=== PATIENT | female | born 1955 | race Two or more races ===

== ENCOUNTER 2023-04-03 19:09 | Inpatient (IN) | payer MEDICARE, OTHER ==
[~2023-04-03] VITALS: Ht 154.9 cm; Wt 104.3 kg
[~2023-04-03 19:09] MED LIST: ALBU8.5H8 IH; DICL50TA7 PO; FURO-144 PO; GLIP10TA11 PO; HYDR200T81 PO; LEVO112T8 PO; METF-881 PO; OMEP40CA21 PO; POTA20TA74 PO; VALS80TA2 PO
[2023-04-03] MEDS ORDERED: FUROSEMIDE 40 MG/4 ML VIAL IV ONE (19:30)
[2023-04-03] MEDS ORDERED: IPRATROPIUM NEB FS 0.5 MG/2.5 ML AMPUL.NEB ONE (19:30)
[2023-04-03] MEDS ORDERED: ALBUTEROL FS 2.5 MG/3 ML VIAL.NEB ONE (19:30)
[2023-04-03] MEDS ORDERED: ALBUTEROL FS 2.5 MG/3 ML VIAL.NEB NEB ONE (19:30)
[2023-04-03] MEDS ORDERED: IPRATROPIUM NEB FS 0.5 MG/2.5 ML AMPUL.NEB NEB ONE (19:30)
[2023-04-03 19:38] VITALS: O2SAT 95
[2023-04-03] MEDS ORDERED: FUROSEMIDE 40 MG/4 ML VIAL ONE (19:40)
[2023-04-03 19:51] LABS: BASOPHILS # (AUTO) 0.1 K/uL (0.0-0.2); BASOPHILS % (AUTO) 0.7 % (0.0-2.0); EOSINOPHILS # (AUTO) 0.1 K/uL (0.0-0.7); EOSINOPHILS % (AUTO) 1.5 % (0.0-6.0); HEMATOCRIT 32 % (33-45); HEMOGLOBIN 10.1 g/dL (11.5-14.8); LYMPHOCYTES # (AUTO) 1.7 K/uL (0.8-4.8); LYMPHOCYTES % (AUTO) 18.2 % (20.0-44.0); MEAN CORPUSCULAR HEMOGLOBIN 25 PG (26.0-33.0); MEAN CORPUSCULAR HGB CONC 32 g/dl (31.0-36.0); MEAN CORPUSCULAR VOLUME 78 fL (82-100); MONOCYTES # (AUTO) 0.6 K/uL (0.1-1.30); MONOCYTES % (AUTO) 6.2 % (2.0-12.0); NEUTROPHILS # (AUTO) 6.9 K/uL (1.8-8.9); NEUTROPHILS % (AUTO) 73.4 % (43.0-81.0); PLATELET COUNT (AUTO) 333 K/uL (150-450); RED BLOOD CELL COUNT(AUTO) 4.08 MIL/uL (4.0-5.2); RED CELL DISTRIBUTION WIDTH 17.6 % (11.5-15.0); WHITE BLOOD COUNT (AUTO) 9.4 K/uL (4.3-11.0)
[2023-04-03 19:53] VITALS: O2SAT 97
[2023-04-03 19:56] LABS: ALANINE AMINOTRANSFERASE 18 U/L (12-78); ALBUMIN 2.9 g/dL (3.4-5.0); ALKALINE PHOSPHATASE 69 U/L (46-116); ASPARTATE AMINOTRANSFERASE 12 U/L (15-37); BILIRUBIN,DIRECT 0.1 mg/dL (0.0-0.2); BILIRUBIN,TOTAL 0.3 mg/dL (0.2-1.0); CALCIUM, SERUM 8.9 mg/dL (8.5-10.1); CARBON DIOXIDE 26 mmol/L (21-32); CHLORIDE 106 mmol/L (98-107); CREATININE 0.9 mg/dL (0.6-1.3); GLUCOSE 173 mg/dL (74-106); POTASSIUM 4.2 mmol/L (3.5-5.1); SODIUM SERUM 141 mmol/L (136-145); UREA NITROGEN, BLOOD 14 mg/dL (7-18)
[2023-04-03] MEDS ORDERED: ACETAMINOPHEN 325 MG TABLET PO PRN (23:00)
[2023-04-03] MEDS ORDERED: MAG HYDROX/AL HYDROX/SIMETH 30 ML UDC PO PRN (23:00)
[2023-04-03] MEDS ORDERED: Z GUARD REMEDY 4 OZ OINT TP PRN (23:00)
[2023-04-03] MEDS ORDERED: ONDANSETRON HCL/PF 4 MG/2 ML VIAL IVP PRN (23:00)
[2023-04-03] MEDS ORDERED: MAGNESIUM HYDROXIDE 30 ML UDC PO PRN (23:00)
[2023-04-03] MEDS ORDERED: DEXTROSE 50%-WATER 50 ML DISP.SYRIN IV PRN (23:00)
[2023-04-03] MEDS ORDERED: ZOLPIDEM TARTRATE 5 MG TABLET PO PRN (23:00)
[2023-04-03] MEDS ORDERED: ALBUTEROL FS 2.5 MG/3 ML VIAL.NEB NEB PRN (23:30)
[2023-04-03 23:37] VITALS: BP 143/72; TEMP 98.4; O2SAT 99
[2023-04-03 23:45] VITALS: BP 143/72; TEMP 98.4; O2SAT 99
[2023-04-04] VITALS: BP 115/69; TEMP 98.2; O2SAT 100
[2023-04-04 04:00] VITALS: BP 128/49; TEMP 98; TEMP 98.2; O2SAT 98
[2023-04-04 05:57] LABS: BASOPHILS % (AUTO) 0.5 % (0.0-2.0); EOSINOPHILS # (AUTO) 0.2 K/uL (0.0-0.7); EOSINOPHILS % (AUTO) 2.2 % (0.0-6.0); HEMATOCRIT 30 % (33-45); HEMOGLOBIN 9.5 g/dL (11.5-14.8); LYMPHOCYTES % (AUTO) 23.5 % (20.0-44.0); MEAN CORPUSCULAR HEMOGLOBIN 25 PG (26.0-33.0); MEAN CORPUSCULAR HGB CONC 32 g/dl (31.0-36.0); MEAN CORPUSCULAR VOLUME 77 fL (82-100); MONOCYTES # (AUTO) 0.7 K/uL (0.1-1.30); MONOCYTES % (AUTO) 8.5 % (2.0-12.0); NEUTROPHILS # (AUTO) 5.7 K/uL (1.8-8.9); NEUTROPHILS % (AUTO) 65.3 % (43.0-81.0); PLATELET COUNT (AUTO) 319 K/uL (150-450); RED BLOOD CELL COUNT(AUTO) 3.85 MIL/uL (4.0-5.2); RED CELL DISTRIBUTION WIDTH 18.1 % (11.5-15.0); WHITE BLOOD COUNT (AUTO) 8.7 K/uL (4.3-11.0)
[2023-04-04 06:09] LABS: CALCIUM, SERUM 8.2 mg/dL (8.5-10.1); MAGNESIUM 1.8 mg/dL (1.8-2.4); PHOSPHORUS 4.2 mg/dL (2.5-4.9); POTASSIUM 4.2 mmol/L (3.5-5.1)
[2023-04-04] MEDS: BLOOD SUGAR DIAGNOSTIC 1 EACH STRIP IN SCH ×4 (06:56→21:59)
[2023-04-04] MEDS: INSULIN REGULAR, HUMAN 100 UNIT/ML 3 ML VIAL SQ PRN ×4 (06:57→22:00)
[2023-04-04] MEDS: PANTOPRAZOLE 40 MG TABLET.DR PO SCH (08:22)
[2023-04-04] MEDS: LEVOTHYROXINE SODIUM 112 MCG TABLET PO SCH (08:22)
[2023-04-04] MEDS: VALSARTAN 80 MG TABLET PO SCH (08:24)
[2023-04-04] MEDS: HYDROXYCHLOROQUINE 200 MG TABLET PO SCH (08:25)
[2023-04-04 08:36] VITALS: BP 156/52; TEMP 98; O2SAT 97
[2023-04-04] MEDS ORDERED: GABA300C PO (09:27)
[2023-04-04] MEDS ORDERED: ASPI-1169 PO (09:27)
[2023-04-04] MEDS ORDERED: FURO-145 PO (09:27)
[2023-04-04] MEDS ORDERED: LEVO137T2 PO (09:27)
[2023-04-04] MEDS ORDERED: METO-357 PO (09:28)
[2023-04-04] MEDS ORDERED: LOSA100T31 PO (09:28)
[2023-04-04] MEDS ORDERED: BLOO-668 IN (09:28)
[2023-04-04] MEDS ORDERED: LINA5TAB PO (09:28)
[2023-04-04] MEDS ORDERED: CLOP75TA15 PO (09:28)
[2023-04-04] MEDS ORDERED: ATOR80TA PO (09:28)
[2023-04-04] MEDS ORDERED: DAPA10TA PO (09:28)
[2023-04-04] MEDS ORDERED: FLUT1BLS IH (09:28)
[2023-04-04] MEDS ORDERED: METH500T6 PO (09:28)
[2023-04-04] MEDS ORDERED: INSU100V7 SQ (09:28)
[2023-04-04] MEDS ORDERED: MONT10TA22 PO (09:28)
[2023-04-04 09:49] LABS: THYROID STIMULATING HORMONE 6.139 uIU/mL (0.358-3.74)
[2023-04-04] MEDS: FUROSEMIDE 40 MG/4 ML VIAL IV SCH ×3 (10:04→17:26)
[2023-04-04] MEDS: POTASSIUM CHLORIDE 20 MEQ TAB.PRT.SR PO SCH ×3 (10:04→11:25)
[2023-04-04 12:00] VITALS: BP 147/52; TEMP 98; O2SAT 98
[2023-04-04 16:00] VITALS: BP 135/48; TEMP 98.4; O2SAT 97
[2023-04-04 20:00] VITALS: BP 143/55; TEMP 98.2; O2SAT 97
[2023-04-04] MEDS: HYDROCODONE/APAP 10/325MG TABLET PO PRN (22:40)
[2023-04-05] VITALS (7 sets, daily range): BP systolic 124–135; BP diastolic 44–64; TEMP 98.1–98.4; O2SAT 95–99
[2023-04-05] MEDS: HYDROCODONE/APAP 10/325MG TABLET PO PRN ×3 (06:41→17:08)
[2023-04-05 07:01] LABS: BASOPHILS # (AUTO) 0.1 K/uL (0.0-0.2); BASOPHILS % (AUTO) 0.7 % (0.0-2.0); EOSINOPHILS # (AUTO) 0.3 K/uL (0.0-0.7); EOSINOPHILS % (AUTO) 3.4 % (0.0-6.0); HEMATOCRIT 32 % (33-45); HEMOGLOBIN 10.2 g/dL (11.5-14.8); LYMPHOCYTES # (AUTO) 2.5 K/uL (0.8-4.8); LYMPHOCYTES % (AUTO) 27.2 % (20.0-44.0); MEAN CORPUSCULAR HEMOGLOBIN 25 PG (26.0-33.0); MEAN CORPUSCULAR HGB CONC 32 g/dl (31.0-36.0); MEAN CORPUSCULAR VOLUME 77 fL (82-100); MONOCYTES # (AUTO) 0.8 K/uL (0.1-1.30); MONOCYTES % (AUTO) 9.2 % (2.0-12.0); NEUTROPHILS # (AUTO) 5.4 K/uL (1.8-8.9); NEUTROPHILS % (AUTO) 59.5 % (43.0-81.0); PLATELET COUNT (AUTO) 357 K/uL (150-450); RED CELL DISTRIBUTION WIDTH 17.6 % (11.5-15.0); WHITE BLOOD COUNT (AUTO) 9.1 K/uL (4.3-11.0)
[2023-04-05] MEDS: BLOOD SUGAR DIAGNOSTIC 1 EACH STRIP IN SCH ×4 (07:04→21:27)
[2023-04-05] MEDS: INSULIN REGULAR, HUMAN 100 UNIT/ML 3 ML VIAL SQ PRN ×4 (07:08→21:27)
[2023-04-05 07:45] LABS: BILIRUBIN,TOTAL 0.2 mg/dL (0.2-1.0); CALCIUM, SERUM 8.8 mg/dL (8.5-10.1); MAGNESIUM 1.8 mg/dL (1.8-2.4); PHOSPHORUS 4.6 mg/dL (2.5-4.9); POTASSIUM 3.6 mmol/L (3.5-5.1); TOTAL PROTEIN, SERUM 7.2 g/dL (6.4-8.2)
[2023-04-05] MEDS: HYDROXYCHLOROQUINE 200 MG TABLET PO SCH (08:33)
[2023-04-05] MEDS: PANTOPRAZOLE 40 MG TABLET.DR PO SCH (08:33)
[2023-04-05] MEDS: LEVOTHYROXINE SODIUM 112 MCG TABLET PO SCH (08:33)
[2023-04-05] MEDS: VALSARTAN 80 MG TABLET PO SCH (08:33)
[2023-04-06] VITALS: BP 114/62; TEMP 98.6; O2SAT 99
[2023-04-06] MEDS: HYDROCODONE/APAP 10/325MG TABLET PO PRN ×2 (00:47→08:41)
[2023-04-06 04:00] VITALS: BP 138/61; TEMP 97.9; O2SAT 99
[2023-04-06] MEDS: BLOOD SUGAR DIAGNOSTIC 1 EACH STRIP IN SCH ×3 (06:38→17:33)
[2023-04-06] MEDS: INSULIN REGULAR, HUMAN 100 UNIT/ML 3 ML VIAL SQ PRN ×3 (06:38→17:54)
[2023-04-06 07:06] LABS: *SPE A/G RATIO 0.8 (0.7-1.7); *SPE ALBUMIN 2.4 g/dL (2.9-4.4); *SPE ALPHA-1-GLOBULIN 0.2 g/dL (0.0-0.4); *SPE ALPHA-2-GLOBULIN 0.8 g/dL (0.4-1.0); *SPE M-SPIKE Not Observed g/dL (Not Observed); *SPE PROTEIN TOTAL 5.4 g/dL (6.0-8.5)
[2023-04-06] MEDS: LEVOTHYROXINE SODIUM 112 MCG TABLET PO SCH (08:27)
[2023-04-06] MEDS: PANTOPRAZOLE 40 MG TABLET.DR PO SCH (08:27)
[2023-04-06] MEDS: VALSARTAN 80 MG TABLET PO SCH (08:27)
[2023-04-06] MEDS: HYDROXYCHLOROQUINE 200 MG TABLET PO SCH (08:28)
[2023-04-06 11:14] VITALS: BP 131/46; TEMP 98.1; O2SAT 98
[2023-04-06] MEDS: GABAPENTIN 300 MG CAPSULE PO SCH ×2 (12:52→17:32)
[2023-04-06 16:00] VITALS: BP 137/57; TEMP 98.1; O2SAT 96
[2023-04-06] MEDS ORDERED: ATORVASTATIN 40 MG TABLET PO SCH (22:00)
[2023-04-06] MEDS ORDERED: MONTELUKAST SODIUM (10MG) 10 MG TABLET PO SCH (22:00)
[2023-04-07] MEDS ORDERED: LEVOTHYROXINE SODIUM 137 MCG TABLET PO SCH (07:30)
[2023-04-07] MEDS ORDERED: ASPIRIN 81 MG TAB.CHEW PO SCH (09:00)
[2023-04-07] MEDS ORDERED: FLUTICASONE/VILANTEROL 1 EACH BLST.W.DEV IH SCH (09:00)
[2023-04-07] MEDS ORDERED: METOPROLOL SUCCINATE 50 MG TAB.SR.24H PO SCH (09:00)
[2023-04-07] MEDS ORDERED: CLOPIDOGREL BISULFATE 75 MG TABLET PO SCH (09:00)
== END 2023-04-06 20:20 | disposition home health service (06) | DRG 291 ==
LOC: ER 19:12 → TELE 21:50 → MED 04-06 12:07
PROVIDERS: ADMIT Nurse Practitioner Acute Care; ATTEND Internal Medicine
DX: I11.0 Hypertensive heart disease with heart failure (principal); I50.33 Acute on chronic diastolic (congestive) heart failure; J96.01 Acute respiratory failure with hypoxia; E44.0 Moderate protein-calorie malnutrition; Z68.43 Body mass index [BMI] 50.0-59.9, adult; Z20.822 Contact with and (suspected) exposure to COVID-19; K29.70 Gastritis, unspecified, without bleeding; E11.9 Type 2 diabetes mellitus without complications; Z90.721 Acquired absence of ovaries, unilateral; Z98.890 Other specified postprocedural states; Z88.1 Allergy status to other antibiotic agents; Z88.0 Allergy status to penicillin; Z79.84 Long term (current) use of oral hypoglycemic drugs; Z79.51 Long term (current) use of inhaled steroids; Z79.890 Hormone replacement therapy; Z79.899 Other long term (current) drug therapy; E78.5 Hyperlipidemia, unspecified; E66.9 Obesity, unspecified; E03.9 Hypothyroidism, unspecified; E88.09 Other disorders of plasma-protein metabolism, not elsewhere classified; I25.10 Atherosclerotic heart disease of native coronary artery without angina pectoris; Z86.73 Personal history of transient ischemic attack (TIA), and cerebral infarction without residual deficits; J44.89 Other specified chronic obstructive pulmonary disease
CPT/HCPCS: 36415; 71045-TC; 80048-TC; 80053-TC; 80061-TC; 80076-TC; 82728-TC; 82962-TC; 83540-TC; 83735-TC; 83880; 84100-TC; 84155; 84165; 84439-TC; 84443-TC; 84484-TC; 85025-TC; 92521; 92526; 92611-TC; 93307-TC; 94799-TC; 97110-TC; 97116-TC; 97530-TC; 97535-TC; C9803; G0378; J1815; J1940

== ENCOUNTER 2023-05-03 08:41 | Inpatient (IN) | payer MEDICARE, OTHER ==
[~2023-05-03] VITALS: Ht 154.9 cm; Wt 99.8 kg
[~2023-05-03 08:41] MED LIST changes: +ASPI-1169 PO; +ATOR80TA PO; +BLOO-668 IN; +CLOP75TA15 PO; +DAPA10TA PO; -DICL50TA7 PO; +FLUT1BLS IH; -FURO-144 PO; +FURO-145 PO; +GABA300C PO; -GLIP10TA11 PO; -HYDR200T81 PO; +INSU100V7 SQ; -LEVO112T8 PO; +LEVO137T2 PO; +LINA5TAB PO; +LOSA100T31 PO; +METH500T6 PO; +METO-357 PO; +MONT10TA22 PO; -POTA20TA74 PO
[2023-05-03 09:49] LABS: BASOPHILS % (AUTO) 0.5 % (0.0-2.0); EOSINOPHILS # (AUTO) 0.2 K/uL (0.0-0.7); EOSINOPHILS % (AUTO) 2.4 % (0.0-6.0); HEMATOCRIT 33 % (33-45); HEMOGLOBIN 10.5 g/dL (11.5-14.8); LYMPHOCYTES # (AUTO) 1.6 K/uL (0.8-4.8); LYMPHOCYTES % (AUTO) 19.5 % (20.0-44.0); MEAN CORPUSCULAR HEMOGLOBIN 25 PG (26.0-33.0); MEAN CORPUSCULAR HGB CONC 31 g/dl (31.0-36.0); MEAN CORPUSCULAR VOLUME 79 fL (82-100); MONOCYTES # (AUTO) 0.6 K/uL (0.1-1.30); MONOCYTES % (AUTO) 7.7 % (2.0-12.0); NEUTROPHILS # (AUTO) 5.6 K/uL (1.8-8.9); NEUTROPHILS % (AUTO) 69.9 % (43.0-81.0); PLATELET COUNT (AUTO) 329 K/uL (150-450); RED BLOOD CELL COUNT(AUTO) 4.26 MIL/uL (4.0-5.2); RED CELL DISTRIBUTION WIDTH 18.8 % (11.5-15.0); WHITE BLOOD COUNT (AUTO) 8.1 K/uL (4.3-11.0)
[2023-05-03 10:05] LABS: CALCIUM, SERUM 8.6 mg/dL (8.5-10.1); CARBON DIOXIDE 31 mmol/L (21-32); CHLORIDE 100 mmol/L (98-107); CREATININE 1.4 mg/dL (0.6-1.3); GLUCOSE 121 mg/dL (74-106); POTASSIUM 3.9 mmol/L (3.5-5.1); SODIUM SERUM 138 mmol/L (136-145); UREA NITROGEN, BLOOD 20 mg/dL (7-18)
[2023-05-03] MEDS ORDERED: FUROSEMIDE 40 MG/4 ML VIAL IV ONE (11:00)
[2023-05-03] MEDS ORDERED: NITROGLYCERIN PACKET 1 GM PACKET TD ONE (11:00)
[2023-05-03] MEDS ORDERED: FUROSEMIDE 40 MG/4 ML VIAL ONE (11:13)
[2023-05-03] MEDS ORDERED: NITROGLYCERIN PACKET 1 GM PACKET ONE (11:14)
[2023-05-03] MEDS ORDERED: AMOX500C2 PO (12:45)
[2023-05-03] MEDS ORDERED: IBUP-1957 PO (12:45)
[2023-05-03] MEDS ORDERED: METF-440 PO (12:45)
[2023-05-03] MEDS ORDERED: INSU100V11 SQ (12:45)
[2023-05-03] MEDS ORDERED: PANT40TA2 PO (12:45)
[2023-05-03] MEDS ORDERED: HYDR50TA61 PO (12:45)
[2023-05-03] MEDS ORDERED: DOXA4TAB3 PO (12:46)
[2023-05-03] MEDS ORDERED: ONDANSETRON HCL/PF 4 MG/2 ML VIAL IVP PRN (13:30)
[2023-05-03] MEDS ORDERED: MAGNESIUM HYDROXIDE 30 ML UDC PO PRN (13:30)
[2023-05-03] MEDS ORDERED: MAG HYDROX/AL HYDROX/SIMETH 30 ML UDC PO PRN (13:30)
[2023-05-03] MEDS ORDERED: ACETAMINOPHEN 325 MG TABLET PO PRN (13:30)
[2023-05-03] MEDS ORDERED: DEXTROSE 50%-WATER 50 ML DISP.SYRIN IV PRN (13:30)
[2023-05-03] MEDS: LOSARTAN POTASSIUM 25 MG TABLET PO SCH (15:55)
[2023-05-03] MEDS: *INSULIN REGULAR(HUMULIN R)HUM 100 UNIT/ML VIAL SQ PRN ×2 (17:09→22:12)
[2023-05-03] MEDS: PANTOPRAZOLE 40 MG TABLET.DR PO SCH (17:10)
[2023-05-03] MEDS: BLOOD SUGAR DIAGNOSTIC 1 EACH STRIP VI SCH ×2 (17:10→21:48)
[2023-05-03] MEDS: GABAPENTIN 300 MG CAPSULE PO SCH (17:11)
[2023-05-03] MEDS: FUROSEMIDE 40 MG/4 ML VIAL IV SCH ×2 (17:11→23:21)
[2023-05-03] MEDS: METFORMIN 500 MG TABLET PO SCH (17:11)
[2023-05-03 18:00] VITALS: BP 159/61; TEMP 98.7; O2SAT 96
[2023-05-03 20:00] VITALS: BP 126/48; TEMP 97.9; O2SAT 98
[2023-05-03] MEDS: ALBUTEROL FS 2.5 MG/3 ML VIAL.NEB IH PRN (20:58)
[2023-05-03] MEDS: ENOXAPARIN SODIUM 30 MG/0.3 ML DISP.SYRIN SQ SCH ×2 (21:00→21:22)
[2023-05-03 21:02] VITALS: O2SAT 92
[2023-05-03 21:17] VITALS: O2SAT 96
[2023-05-03] MEDS: MONTELUKAST SODIUM (10MG) 10 MG TABLET PO SCH (21:22)
[2023-05-03] MEDS ORDERED: INSULIN GLARGINE, 100 UNIT/ML CARTRIDGE SQ SCH (22:00)
[2023-05-03] MEDS: INSULIN GLARGINE, 100 UNIT/ML CARTRIDGE SQ SCH (22:00)
[2023-05-04] VITALS (8 sets, daily range): BP systolic 116–131; BP diastolic 46–73; TEMP 97.6–98.9; O2SAT 92–98
[2023-05-04] MEDS: ALBUTEROL FS 2.5 MG/3 ML VIAL.NEB IH PRN ×3 (02:21→20:08)
[2023-05-04] MEDS: FUROSEMIDE 40 MG/4 ML VIAL IV SCH (05:09)
[2023-05-04] MEDS: BLOOD SUGAR DIAGNOSTIC 1 EACH STRIP VI SCH ×4 (06:50→21:08)
[2023-05-04] MEDS: INSULIN REGULAR, HUMAN 100 UNIT/ML 3 ML VIAL SQ PRN ×2 (06:51→13:28)
[2023-05-04] MEDS: LEVOTHYROXINE SODIUM 137 MCG TABLET PO SCH (08:32)
[2023-05-04] MEDS: DOXAZOSIN MESYLATE (4 MG) 4 MG TABLET PO SCH (09:00)
[2023-05-04] MEDS: LOSARTAN POTASSIUM 25 MG TABLET PO SCH (09:00)
[2023-05-04] MEDS: METOPROLOL SUCCINATE 50 MG TAB.SR.24H PO SCH (09:00)
[2023-05-04 09:16] LABS: BASOPHILS # (AUTO) 0.1 K/uL (0.0-0.2); BASOPHILS % (AUTO) 0.6 % (0.0-2.0); EOSINOPHILS # (AUTO) 0.2 K/uL (0.0-0.7); EOSINOPHILS % (AUTO) 2.1 % (0.0-6.0); HEMATOCRIT 33 % (33-45); HEMOGLOBIN 10.6 g/dL (11.5-14.8); LYMPHOCYTES # (AUTO) 1.7 K/uL (0.8-4.8); LYMPHOCYTES % (AUTO) 20.3 % (20.0-44.0); MEAN CORPUSCULAR HEMOGLOBIN 25 PG (26.0-33.0); MEAN CORPUSCULAR HGB CONC 32 g/dl (31.0-36.0); MEAN CORPUSCULAR VOLUME 79 fL (82-100); MONOCYTES # (AUTO) 0.7 K/uL (0.1-1.30); NEUTROPHILS # (AUTO) 5.8 K/uL (1.8-8.9); PLATELET COUNT (AUTO) 307 K/uL (150-450); RED BLOOD CELL COUNT(AUTO) 4.21 MIL/uL (4.0-5.2); RED CELL DISTRIBUTION WIDTH 18.6 % (11.5-15.0); WHITE BLOOD COUNT (AUTO) 8.5 K/uL (4.3-11.0)
[2023-05-04 09:38] LABS: CALCIUM, SERUM 8.6 mg/dL (8.5-10.1); CREATININE 1.1 mg/dL (0.6-1.3); MAGNESIUM 1.8 mg/dL (1.8-2.4); PHOSPHORUS 3.8 mg/dL (2.5-4.9); POTASSIUM 3.5 mmol/L (3.5-5.1)
[2023-05-04] MEDS: ASPIRIN 81 MG TAB.CHEW PO SCH (09:55)
[2023-05-04] MEDS: FLUTICASONE/VILANTEROL 1 EACH BLST.W.DEV IH SCH (09:55)
[2023-05-04] MEDS: CLOPIDOGREL BISULFATE 75 MG TABLET PO SCH (09:55)
[2023-05-04] MEDS: GABAPENTIN 300 MG CAPSULE PO SCH ×3 (09:56→17:27)
[2023-05-04] MEDS: LINAGLIPTIN 5 MG TABLET PO SCH (09:56)
[2023-05-04] MEDS: METFORMIN 500 MG TABLET PO SCH ×2 (09:58→17:27)
[2023-05-04] MEDS: PANTOPRAZOLE 40 MG TABLET.DR PO SCH ×2 (09:58→17:27)
[2023-05-04] MEDS: ENOXAPARIN SODIUM 30 MG/0.3 ML DISP.SYRIN SQ SCH (21:00)
[2023-05-04] MEDS: MONTELUKAST SODIUM (10MG) 10 MG TABLET PO SCH (21:08)
[2023-05-04] MEDS: INSULIN GLARGINE, 100 UNIT/ML CARTRIDGE SQ SCH (21:09)
[2023-05-04] MEDS: *INSULIN REGULAR(HUMULIN R)HUM 100 UNIT/ML VIAL SQ PRN (21:26)
[2023-05-05 02:27] VITALS: O2SAT 95
[2023-05-05] MEDS: ALBUTEROL FS 2.5 MG/3 ML VIAL.NEB IH PRN ×2 (02:27→11:46)
[2023-05-05 04:00] VITALS: BP 129/53; TEMP 98.1; O2SAT 96
[2023-05-05 05:49] LABS: BASOPHILS % (AUTO) 0.3 % (0.0-2.0); EOSINOPHILS # (AUTO) 0.1 K/uL (0.0-0.7); EOSINOPHILS % (AUTO) 1.7 % (0.0-6.0); HEMATOCRIT 31 % (33-45); HEMOGLOBIN 9.9 g/dL (11.5-14.8); LYMPHOCYTES # (AUTO) 1.3 K/uL (0.8-4.8); LYMPHOCYTES % (AUTO) 16.7 % (20.0-44.0); MEAN CORPUSCULAR HEMOGLOBIN 25 PG (26.0-33.0); MEAN CORPUSCULAR HGB CONC 32 g/dl (31.0-36.0); MEAN CORPUSCULAR VOLUME 78 fL (82-100); MONOCYTES # (AUTO) 0.8 K/uL (0.1-1.30); MONOCYTES % (AUTO) 9.9 % (2.0-12.0); NEUTROPHILS # (AUTO) 5.4 K/uL (1.8-8.9); NEUTROPHILS % (AUTO) 71.4 % (43.0-81.0); PLATELET COUNT (AUTO) 279 K/uL (150-450); RED BLOOD CELL COUNT(AUTO) 3.99 MIL/uL (4.0-5.2); RED CELL DISTRIBUTION WIDTH 18.8 % (11.5-15.0); WHITE BLOOD COUNT (AUTO) 7.6 K/uL (4.3-11.0)
[2023-05-05 06:13] LABS: CALCIUM, SERUM 8.1 mg/dL (8.5-10.1); CREATININE 1.4 mg/dL (0.6-1.3); MAGNESIUM 1.6 mg/dL (1.8-2.4); PHOSPHORUS 4.2 mg/dL (2.5-4.9); POTASSIUM 3.4 mmol/L (3.5-5.1)
[2023-05-05] MEDS: BLOOD SUGAR DIAGNOSTIC 1 EACH STRIP VI SCH ×2 (06:31→11:37)
[2023-05-05] MEDS: INSULIN REGULAR, HUMAN 100 UNIT/ML 3 ML VIAL SQ PRN (06:33)
[2023-05-05] MEDS ORDERED: POTASSIUM CHLORIDE 20 MEQ TAB.PRT.SR PO ONE (09:00)
[2023-05-05] MEDS ORDERED: MAGNESIUM OXIDE 400 MG TABLET PO ONE (09:30)
[2023-05-05] MEDS: GABAPENTIN 300 MG CAPSULE PO SCH ×2 (09:47→13:00)
[2023-05-05] MEDS: FLUTICASONE/VILANTEROL 1 EACH BLST.W.DEV IH SCH (09:47)
[2023-05-05] MEDS: LEVOTHYROXINE SODIUM 137 MCG TABLET PO SCH (09:47)
[2023-05-05] MEDS: PANTOPRAZOLE 40 MG TABLET.DR PO SCH (09:48)
[2023-05-05] MEDS: METFORMIN 500 MG TABLET PO SCH (09:48)
[2023-05-05] MEDS: CLOPIDOGREL BISULFATE 75 MG TABLET PO SCH (09:48)
[2023-05-05] MEDS: DOXAZOSIN MESYLATE (4 MG) 4 MG TABLET PO SCH (09:48)
[2023-05-05] MEDS: ASPIRIN 81 MG TAB.CHEW PO SCH (09:48)
[2023-05-05] MEDS: LINAGLIPTIN 5 MG TABLET PO SCH (09:48)
[2023-05-05 09:49] VITALS: BP 136/60
[2023-05-05] MEDS: LOSARTAN POTASSIUM 25 MG TABLET PO SCH (09:49)
[2023-05-05] MEDS: METOPROLOL SUCCINATE 50 MG TAB.SR.24H PO SCH (09:49)
[2023-05-05 11:46] VITALS: O2SAT 93
== END 2023-05-05 14:20 | disposition home or self-care (01) | DRG 291 ==
LOC: ER 08:49 → MED 15:01 → TELE 18:49 → MED 05-04 11:40
PROVIDERS: ATTEND Nurse Practitioner Acute Care
DX: I11.0 Hypertensive heart disease with heart failure (principal); I50.33 Acute on chronic diastolic (congestive) heart failure; E44.0 Moderate protein-calorie malnutrition; N17.9 Acute kidney failure, unspecified; Z68.41 Body mass index [BMI] 40.0-44.9, adult; I25.10 Atherosclerotic heart disease of native coronary artery without angina pectoris; D50.9 Iron deficiency anemia, unspecified; E11.9 Type 2 diabetes mellitus without complications; J44.9 Chronic obstructive pulmonary disease, unspecified; E03.9 Hypothyroidism, unspecified; E66.9 Obesity, unspecified; E78.5 Hyperlipidemia, unspecified; E87.6 Hypokalemia; E88.09 Other disorders of plasma-protein metabolism, not elsewhere classified; M89.8X9 Other specified disorders of bone, unspecified site; Z79.4 Long term (current) use of insulin; Z79.82 Long term (current) use of aspirin; Z79.84 Long term (current) use of oral hypoglycemic drugs; Z86.73 Personal history of transient ischemic attack (TIA), and cerebral infarction without residual deficits
CPT/HCPCS: 36415; 71045-TC; 80048-TC; 82962-TC; 83735-TC; 84100-TC; 84484-TC; 85025-TC; 94799-TC; 97112-TC; 97116-TC; 97530-TC; G0378; J1650; J1815; J1940